=== PATIENT | female | born 1945 | race Caucasian/White ===

== ENCOUNTER 2021-04-04 10:54 | Emergency (ER) | payer MEDICARE | END 2021-04-04 12:30 | disposition left against medical advice (07) | LOC: ER 10:55 | DX: Z53.21 Procedure and treatment not carried out due to patient leaving prior to being seen by health care provider (principal) ==

== ENCOUNTER 2024-06-25 08:15 | Day surgery (SDC) | payer MEDICARE, OTHER ==
[~2024-06-25] VITALS: Ht 165.1 cm; Wt 87.3 kg
[2024-06-25 09:02] VITALS: BP 131/70; PULSE 91; RESP 20; TEMP 91
[2024-06-25] MEDS ORDERED: ROSU40TA89 PO (09:05)
[2024-06-25] MEDS ORDERED: [UNRECOGNIZED DRUG - CODE] PO (09:05)
[2024-06-25] MEDS ORDERED: EZET10TA48 PO (09:05)
[2024-06-25] MEDS ORDERED: GLIP10TA21 PO (09:05)
[2024-06-25] MEDS ORDERED: PANT40TA54 PO (09:05)
[2024-06-25] MEDS ORDERED: SOLI10TA7 PO (09:05)
[2024-06-25] MEDS ORDERED: TROS20TA4 PO (09:05)
[2024-06-25] MEDS ORDERED: DILT120T (09:05)
[2024-06-25] MEDS ORDERED: LOSA50TA64 PO (09:05)
[2024-06-25] MEDS ORDERED: NITR0.4T51 SL (09:06)
[2024-06-25] MEDS ORDERED: EMPA25TA PO (09:07)
[2024-06-25 09:18] VITALS: TEMP 98.5
[2024-06-25] MEDS ORDERED: DIAZ5TAB5 (09:34)
[2024-06-25] MEDS ORDERED: BUTA1TAB48 PO (09:34)
[2024-06-25] MEDS ORDERED: TRAM50TA2 PO (09:38)
[2024-06-25] MEDS ORDERED: fentaNYL/PF 50MCG/1 ML 2ML syringe ONE (10:04)
[2024-06-25] MEDS ORDERED: midazolam 1 mg/ML 2ml injection ONE (10:04)
[2024-06-25] MEDS ORDERED: propofol inj 20 ML IV ONE (10:25)
[2024-06-25 10:49] VITALS: BP 128/68; PULSE 86; RESP 18; O2SAT 100
[2024-06-25 10:59] VITALS: BP 132/66; PULSE 82; RESP 18; O2SAT 100
[2024-06-25 11:09] VITALS: BP 130/75; PULSE 81; RESP 20; O2SAT 99
[2024-06-25 11:19] VITALS: BP 140/73; PULSE 78; RESP 19; O2SAT 97
== END 2024-06-25 11:38 | disposition home or self-care (01) ==
LOC: GI LAB 08:15
PROVIDERS: ATTEND Internal Medicine Gastroenterology
DX: R14.0 Abdominal distension (gaseous) (principal); K57.30 Diverticulosis of large intestine without perforation or abscess without bleeding; R10.9 Unspecified abdominal pain; K21.00 Gastro-esophageal reflux disease with esophagitis, without bleeding; K29.70 Gastritis, unspecified, without bleeding; I10 Essential (primary) hypertension; E11.9 Type 2 diabetes mellitus without complications; E66.9 Obesity, unspecified; I25.2 Old myocardial infarction; Z87.891 Personal history of nicotine dependence; Z68.32 Body mass index [BMI] 32.0-32.9, adult; Z88.0 Allergy status to penicillin; Z88.1 Allergy status to other antibiotic agents; Z88.2 Allergy status to sulfonamides
CPT/HCPCS: 43239; 45378; 82948; J2250; J2704; J3010; J7030; Z7512; 88305; 88313